=== PATIENT | male | born 1990 | race Caucasian/White ===

== ENCOUNTER 2022-01-26 19:30 | Inpatient (IN) | payer OTHER ==
[2022-01-26 22:04] VITALS: BMI 20.2
[2022-01-26] MEDS ORDERED: LOPERAMIDE HCL 2 MG CAPSULE PO PRN (23:17)
[2022-01-26] MEDS ORDERED: ACETAMINOPHEN 325 MG TABLET (FP) PO PRN ×2 (23:17)
[2022-01-26] MEDS ORDERED: MAG HYDROX/AL HYDROX/SIMETH 30 ML UNIT-DOSE CUP PO PRN (23:17)
[2022-01-26] MEDS ORDERED: ONDANSETRON *ODT* 4 MG TABLET SL PRN (23:17)
[2022-01-26] MEDS ORDERED: BISMUTH SUBSALICYLATE 524 MG/30 ML PO PRN (23:17)
[2022-01-26] MEDS ORDERED: DICYCLOMINE HCL 10 MG CAPSULE PO PRN (23:17)
[2022-01-26] MEDS ORDERED: MAGNESIUM CITRATE 300 ML BOTTLE PO PRN (23:17)
[2022-01-26] MEDS ORDERED: IBUPROFEN 400 MG TABLET (FP) PO PRN (23:17)
[2022-01-26] MEDS ORDERED: IBUPROFEN 600 MG TABLET (FP) PO PRN (23:17)
[2022-01-26] MEDS ORDERED: BENZOCAINE/MENTHOL (CHLORASEPTIC ) LOZENGE MM PRN (23:17)
[2022-01-26] MEDS ORDERED: MAGNESIUM HYDROX 2400MG/30ML ORAL SUSPENSION 30 ML CUP PO PRN (23:17)
[2022-01-26] MEDS ORDERED: chlordiazePOXIDE HCL 25 MG CAPSULE ONE (23:41)
[2022-01-26] MEDS: chlordiazePOXIDE HCL 25 MG CAPSULE PO SCH (23:44)
[2022-01-27] MEDS ORDERED: chlordiazePOXIDE HCL 25 MG CAPSULE ONE (06:05)
[2022-01-27] MEDS: chlordiazePOXIDE HCL 25 MG CAPSULE PO SCH ×4 (06:52→22:04)
[2022-01-27 10:02] LABS: HEMATOCRIT 36.4 % (35.4-49); HEMOGLOBIN 12.6 GM/dL (11.7-16.9); MCH 31.1 pg (25.7-33.7); MCHC 34.7 g/dl (32.0-35.9); MEAN CELL VOLUME 89.7 fl (80-96); MEAN PLT VOLUME 7.4 fl (7.5-11.1); PLATELET COUNT 197 10^3/uL (134-434); RBC 4.06 M/mm3 (4.00-5.60); RDW 13.5 % (11.9-15.9); WHITE BLOOD COUNT 5.6 K/mm3 (4.0-10.0)
[2022-01-27] MEDS: NICOTINE 14 MG/24 HOURS TOPICAL PATCH TD SCH (10:06)
[2022-01-27] MEDS: PRENATAL VITAMINS W/ FOLIC ACID TABLET (FP) PO SCH (10:06)
[2022-01-27 10:41] LABS: CALCIUM 8.5 mg/dL (8.5-10.1)
[2022-01-27 10:42] LABS: ALBUMIN 3.6 g/dl (3.4-5.0)
[2022-01-27 10:45] LABS: CREATININE 0.7 mg/dL (0.55-1.3)
[2022-01-27 10:46] LABS: BILIRUBIN,TOTAL 1.1 mg/dL (0.2-1)
[2022-01-27 10:47] LABS: TOT PROT 6.4 g/dl (6.4-8.2)
[2022-01-27] MEDS: RALTEGRAVIR POTASSIUM 400 MG TAB PO SCH ×2 (11:00→22:05)
[2022-01-27] MEDS: EMTRICITABINE 200MG/TENOFOVIR 300MG PO SCH (11:00)
[2022-01-27] MEDS: chlordiazePOXIDE HCL 25 MG CAPSULE PO PRN ×2 (12:31→20:34)
[2022-01-27 15:22] LABS: HIV INTERPRETATION NEGATIVE (NEGATIVE)
[2022-01-27] MEDS: NICOTINE POLACRILEX 2 MG GUM BUC PRN (17:43)
[2022-01-27] MEDS: METHOCARBAMOL 500 MG TABLET PO PRN (18:15)
[2022-01-27] MEDS: MELATONIN 5 MG TABLETS PO SCH (22:05)
[2022-01-27] MEDS: THIAMINE HCL 100 MG TABLET (FP) PO SCH (22:05)
[2022-01-28] MEDS: chlordiazePOXIDE HCL 25 MG CAPSULE PO SCH ×4 (06:04→22:01)
[2022-01-28] MEDS: NICOTINE 14 MG/24 HOURS TOPICAL PATCH TD SCH (09:51)
[2022-01-28] MEDS: PRENATAL VITAMINS W/ FOLIC ACID TABLET (FP) PO SCH (09:51)
[2022-01-28] MEDS: EMTRICITABINE 200MG/TENOFOVIR 300MG PO SCH (09:51)
[2022-01-28] MEDS: RALTEGRAVIR POTASSIUM 400 MG TAB PO SCH ×2 (09:51→22:00)
[2022-01-28] MEDS ORDERED: POTASSIUM CHLORIDE TABS 20 MEQ TABLET.ER (FP) PO ONE ×2 (10:59→17:00)
[2022-01-28] MEDS: chlordiazePOXIDE HCL 25 MG CAPSULE PO PRN ×2 (12:24→19:04)
[2022-01-28] MEDS: METHOCARBAMOL 500 MG TABLET PO PRN ×2 (12:24→18:58)
[2022-01-28] MEDS: NICOTINE POLACRILEX 2 MG GUM BUC PRN ×3 (15:24→22:06)
[2022-01-28] MEDS: NICOTINE 10 MG CARTRIDGE (INHALER) IH PRN (19:34)
[2022-01-28] MEDS: THIAMINE HCL 100 MG TABLET (FP) PO SCH (22:00)
[2022-01-28] MEDS: MELATONIN 5 MG TABLETS PO SCH (22:01)
[2022-01-29] MEDS: chlordiazePOXIDE HCL 10 MG CAPSULE PO SCH ×4 (06:02→22:52)
[2022-01-29] MEDS: EMTRICITABINE 200MG/TENOFOVIR 300MG PO SCH (10:03)
[2022-01-29] MEDS: RALTEGRAVIR POTASSIUM 400 MG TAB PO SCH ×2 (10:03→22:51)
[2022-01-29] MEDS: PRENATAL VITAMINS W/ FOLIC ACID TABLET (FP) PO SCH (10:04)
[2022-01-29] MEDS: NICOTINE 14 MG/24 HOURS TOPICAL PATCH TD SCH (10:04)
[2022-01-29] MEDS: NICOTINE POLACRILEX 2 MG GUM BUC PRN ×5 (10:04→22:52)
[2022-01-29] MEDS: METHOCARBAMOL 500 MG TABLET PO PRN ×2 (10:06→17:06)
[2022-01-29] MEDS: chlordiazePOXIDE HCL 10 MG CAPSULE PO PRN ×2 (12:08→19:56)
[2022-01-29] MEDS: NICOTINE 10 MG CARTRIDGE (INHALER) IH PRN ×3 (17:11→22:51)
[2022-01-29] MEDS: MELATONIN 5 MG TABLETS PO SCH (22:51)
[2022-01-29] MEDS: THIAMINE HCL 100 MG TABLET (FP) PO SCH (22:51)
[2022-01-30] MEDS: chlordiazePOXIDE HCL 10 MG CAPSULE PO SCH ×2 (06:07→17:34)
[2022-01-30] MEDS: PRENATAL VITAMINS W/ FOLIC ACID TABLET (FP) PO SCH (09:03)
[2022-01-30] MEDS: RALTEGRAVIR POTASSIUM 400 MG TAB PO SCH ×2 (09:03→23:00)
[2022-01-30] MEDS: NICOTINE 10 MG CARTRIDGE (INHALER) IH PRN ×4 (09:04→23:00)
[2022-01-30] MEDS: EMTRICITABINE 200MG/TENOFOVIR 300MG PO SCH (09:04)
[2022-01-30] MEDS: NICOTINE 14 MG/24 HOURS TOPICAL PATCH TD SCH (09:04)
[2022-01-30] MEDS: METHOCARBAMOL 500 MG TABLET PO PRN ×2 (11:07→23:00)
[2022-01-30] MEDS: NICOTINE POLACRILEX 2 MG GUM BUC PRN ×3 (11:08→23:00)
[2022-01-30] MEDS: THIAMINE HCL 100 MG TABLET (FP) PO SCH (23:00)
[2022-01-30] MEDS: MELATONIN 5 MG TABLETS PO SCH (23:00)
[2022-01-31] MEDS ORDERED: chlordiazePOXIDE HCL 10 MG CAPSULE PO ONE (05:00)
[2022-01-31] MEDS: NICOTINE 10 MG CARTRIDGE (INHALER) IH PRN ×2 (06:13→09:20)
[2022-01-31] MEDS: NICOTINE POLACRILEX 2 MG GUM BUC PRN ×2 (06:13→08:52)
[2022-01-31] MEDS: RALTEGRAVIR POTASSIUM 400 MG TAB PO SCH (09:13)
[2022-01-31] MEDS: PRENATAL VITAMINS W/ FOLIC ACID TABLET (FP) PO SCH (09:13)
[2022-01-31] MEDS: EMTRICITABINE 200MG/TENOFOVIR 300MG PO SCH (09:14)
[2022-01-31] MEDS: NICOTINE 14 MG/24 HOURS TOPICAL PATCH TD SCH (09:14)
[2022-01-31 09:53] VITALS: BP 127/79; PULSE 61; RESP 18; TEMP 96.6
== END 2022-01-31 09:36 | disposition home or self-care (01) | DRG 775 ==
LOC: YASAS 19:30 → Y3N 01-27 09:23
PROVIDERS: ADMIT Allergy & Immunology; ATTEND Surgery
PROC: HZ2ZZZZ Detoxification Services for Substance Abuse Treatment (ICD-10-PCS; principal; 2022-01-27)
DX: F10.230 Alcohol dependence with withdrawal, uncomplicated (principal); F12.20 Cannabis dependence, uncomplicated; F17.210 Nicotine dependence, cigarettes, uncomplicated; E87.6 Hypokalemia; R74.01 Elevation of levels of liver transaminase levels; Z20.822 Contact with and (suspected) exposure to COVID-19; Z72.52 High risk homosexual behavior; Z86.69 Personal history of other diseases of the nervous system and sense organs
CPT/HCPCS: 36415; 80053; 81003; 84132; 85027; 86780; 86803; 87086; 87389; 87491; 87591; 87661; 93005; 93010; C9803-CS; U0003; U0005